=== PATIENT | female | born 1980 | race Caucasian/White ===

== ENCOUNTER 2021-12-30 14:36 | Emergency (ER) | payer MEDICAID ==
[~2021-12-30] VITALS: Ht 160 cm; Wt 72.6 kg
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
--- NOTE | 2021-12-30 14:42 | NUR ---
Dr Barrett at the bedside for MSE.
[2021-12-30] MEDS ORDERED: IV NORMAL SALINE 1000 ML BAG IV ONE (14:45)
[2021-12-30] MEDS ORDERED: ACETAMINOPHEN 325 MG TABLET PO ONE (14:45)
[2021-12-30 15:21] LABS: HEMATOCRIT 42.5 % (31.2-41.9); MEAN CORPUSCULAR HEMOGLOBIN 29.3 uug (24.7-32.8); MEAN CORPUSCULAR VOLUME 86.5 fL (75.5-95.3); PLATELET COUNT (AUTO) 287 K/uL (179-408)
[2021-12-30 15:26] LABS: ALANINE AMINOTRANSFERASE 21 U/L (14-59); ALKALINE PHOSPHATASE 95 U/L (50-136); ASPARTATE AMINOTRANSFERASE 11 U/L (15-37); BILIRUBIN,DIRECT 0.1 mg/dL (0.0-0.2); BILIRUBIN,TOTAL 0.4 mg/dL (0.2-1.0); CARBON DIOXIDE 25 mmol/L (21-32); CHLORIDE 102 mmol/L (98-107); CREATININE 0.9 mg/dL (0.6-1.3); GLUCOSE 92 mg/dL (74-106); POTASSIUM 3.8 mmol/L (3.5-5.1); TOTAL PROTEIN, SERUM 8.4 g/dL (6.4-8.2); UREA NITROGEN, BLOOD 15 mg/dL (7-18)
[2021-12-30] MEDS ORDERED: ACETAMINOPHEN 325 MG TABLET ONE (15:27)
[2021-12-30] MEDS ORDERED: IBUP-1955 PO (15:29)
[2021-12-30] MEDS ORDERED: CYCL5TAB PO (15:29)
[2021-12-30 16:07] LABS: *URINE HCG, QUAL NEG (NEGATIVE)
[2021-12-30 17:42] VITALS: BP 140/75
--- NOTE | 2021-12-30 17:42 | NUR ---
Patient discharged to home in stable condition. Written and verbal after care instructions given. Patient verbalizes understanding of instructions. Stressed follow up or return to ER for worsening s/s.
== END 2021-12-30 17:44 | disposition home or self-care (01) ==
LOC: ER 14:36
DX: S13.4XXA Sprain of ligaments of cervical spine, initial encounter (principal); S16.1XXA Strain of muscle, fascia and tendon at neck level, initial encounter; S33.5XXA Sprain of ligaments of lumbar spine, initial encounter; V43.52XA Car driver injured in collision with other type car in traffic accident, initial encounter; Y92.414 Local residential or business street as the place of occurrence of the external cause; R91.8 Other nonspecific abnormal finding of lung field
CPT/HCPCS: 99285; 70450; 96360; 71045; 96361; 80076; 80048; 82962; 84703; 85025; 84484; 36415; 93005; 72110; 72125; J7040; A4663